=== PATIENT | male | born 1985 | race African-American/Black ===

== ENCOUNTER 2017-04-28 14:43 | Outpatient (CLI) | payer MEDICARE, MEDICAID ==
[~2017-04-28 14:43] MED LIST: Gadobenate Dimeglumine 529 MG/1 ML (20ML VIAL) ONE
--- NOTE | 2017-04-28 16:24 | MRI ---
MRI WITH ND WITHOUT CONTRAST: HISTORY: Four to 5 yeas of swelling in the back of the head. COMPARISON: A search was made of the [facility] PACS system, but prior MRIs were not on the P ACS. TECHNIQUE: A brain MRI is performed with and without intravenous Gadolinium administration. Multisequential, mu ltiplanar imaging is performed. FINDINGS: No hemorrhage on the axial gradient echo sequence. Hypointensity in the region of the pineal gland s uggesting pineal gland calcification. Central arterial flow voids are maintained. Absent restricted diffusion. No parenchymal mass, mass effect, or midline shift. Brain volume, age appropriate. Cortical cunningham-wh ite matter differentiation is preserved. Ventricles and sulci are patent and symmetric. Minimal mucosal thickening in the paranasal sinuses. Adequate mastoid air cell aeration. Appropriat e T1 marrow signal intensity of the calvarium. Midline brain parenchymal structures are unremarkable . Mild fullness of the palatine tonsils, incompletely evaluated. IMPRESSION: 1. Unremarkable pre- and post-contrast MRI brain. 2. Nonspecific mild fullness of palatine tonsils. Direct visualization is recommended. POS: [facility]
== END 2017-04-28 14:44 | disposition home or self-care (01) ==
LOC: SCSMRI 14:43
PROVIDERS: ATTEND Psychiatry & Neurology Neurology
DX: G43.019 Migraine without aura, intractable, without status migrainosus (principal)
CPT/HCPCS: 70553; A9579

== ENCOUNTER 2021-02-05 13:22 | Outpatient (CLI) | payer MEDICARE, MEDICAID | END 2021-02-05 13:23 | disposition home or self-care (01) | LOC: SCSMRI 13:22 | PROVIDERS: ATTEND Family Medicine | DX: M54.50 Low back pain, unspecified (principal); M62.58 Muscle wasting and atrophy, not elsewhere classified, other site | CPT/HCPCS: 72148 ==